=== PATIENT | female | born 1935 | race Two or more races ===

== ENCOUNTER 2016-10-16 17:06 | Emergency (ER) | payer OTHER, MEDICAID ==
[~2016-10-16] VITALS: Ht 170.2 cm; Wt 102.5 kg
[2016-10-16] MEDS ORDERED: SODIUM CHLORIDE 0.9% 1,000 ML IVB ONE (23:09)
[2016-10-16] MEDS ORDERED: HYDROmorphone HCL 2 MG/ML VL IV ONE (23:15)
[2016-10-16] MEDS ORDERED: ONDANSETRON HCL 4 MG/2 ML VIAL IV ONE (23:15)
[2016-10-16 23:59] VITALS: BP 159/77
[2016-10-17 00:02] LABS: Basophils # (auto) 0 uL; Basophils % (auto) 0.4 % (0.0-2.0); DEFINITIVE VIEW TRANSMISSION; Eosinophils # (auto) 0.2 uL; Eosinophils % (auto) 3.8 % (0.0-7.0); Hematocrit 30.2 % (36.0-46.0); Hemoglobin 10.1 g/dL (12.2-16.2); Lymphocytes # (auto) 0.9 uL; Lymphocytes % (auto) 20.1 % (10.0-50.0); Mean Corpuscular Hemoglobin 31.2 pg (28.0-32.0); Mean Corpuscular Hgb Conc. 33.6 g/dL (32.0-36.0); Mean Corpuscular Volume 92.8 fL (80.0-100.0); Mean Platelet Volume 7.7 fL (7.4-10.4); Monocytes # (auto) 0.5 uL; Monocytes % (auto) 10.7 % (0.0-12.0); Platelet Count (auto) 346 10^3/uL (140-450); SUSPECT VIEW TRANSMISSION; White Blood Cell 4.6 10^3/uL (4.4-10.8)
[2016-10-17 00:16] LABS: Red Cell Distribution Width 23.7 % (11.6-16.0)
[2016-10-17 00:23] LABS: Albumin 3.4 g/dL (3.4-5.0); BUN/Creatinine Ratio 13.2; Calcium 8.5 mg/dL (8.5-10.1); Potassium 3.9 mmol/L (3.5-5.1)
[2016-10-17 00:24] LABS: INR 0.92 (0.9-1.15); Partial Thromboplastin Time 26.4 sec (22.64-33.71); Prothrombin Time 9.9 sec (9.37-12.3)
[2016-10-17 00:26] LABS: Bilirubin, Total 0.4 mg/dL (0.2-1.0)
[2016-10-17 00:45] LABS: Anisocytosis Moderate; Ovalocytes FEW; Platelet Estimate Adequate; Polychromasia Slight; Stomatocytes Few
[2016-10-17 00:57] LABS: Urine RBC None Seen /hpf (0 - 4)
[2016-10-17 01:04] LABS: Urine Bilirubin Negative (Negative); Urine Blood Negative /uL (Negative); Urine Color Yellow (Yellow); Urine Glucose Normal (Normal); Urine Ketone Negative (Negative); Urine Nitrite Negative (Negative); Urine Squamous Epithelial Cell FEW /hpf (<5); Urine Urobilinogen Normal (Negative)
== END 2016-10-17 01:51 | disposition home or self-care (01) ==
LOC: ER 17:25
DX: I89.0 Lymphedema, not elsewhere classified (principal); Z85.3 Personal history of malignant neoplasm of breast
CPT/HCPCS: 36415; 74176; 80053; 81001; 82150; 83690; 85025; 85610; 85730; 93971

== ENCOUNTER 2016-11-11 19:52 | Emergency (ER) | payer OTHER, MEDICAID ==
[2016-11-11 20:45] LABS: Basophils # (auto) 0 uL; Basophils % (auto) 0.4 % (0.0-2.0); DEFINITIVE VIEW TRANSMISSION; Eosinophils # (auto) 0.5 uL; Eosinophils % (auto) 6.1 % (0.0-7.0); Hematocrit 35.9 % (36.0-46.0); Hemoglobin 11.8 g/dL (12.2-16.2); Lymphocytes # (auto) 1.6 uL; Lymphocytes % (auto) 20.6 % (10.0-50.0); Mean Corpuscular Hemoglobin 30.3 pg (28.0-32.0); Mean Corpuscular Hgb Conc. 32.9 g/dL (32.0-36.0); Mean Platelet Volume 7.7 fL (7.4-10.4); Monocytes # (auto) 0.5 uL; Monocytes % (auto) 6.1 % (0.0-12.0); Neutrophils # (auto) 5.1 uL; Neutrophils % (auto) 66.8 % (37.0-80.0); Platelet Count (auto) 338 10^3/uL (140-450); Red Cell Distribution Width 19.5 % (11.6-16.0); White Blood Cell 7.6 10^3/uL (4.4-10.8)
[2016-11-11 21:00] LABS: Prothrombin Time 9.5 sec (9.37-12.3)
[2016-11-11 21:06] LABS: Albumin 3.8 g/dL (3.4-5.0); BUN/Creatinine Ratio 20.3; Bilirubin, Total 0.4 mg/dL (0.2-1.0); Calcium 9.3 mg/dL (8.5-10.1); Potassium 3.8 mmol/L (3.5-5.1); Total Protein 7.8 g/dL (6.4-8.2)
[2016-11-11 21:11] LABS: INR 0.87 (0.9-1.15)
[2016-11-11 21:41] LABS: Anisocytosis Moderate; Ovalocytes FEW; Platelet Estimate Adequate
[2016-11-12] MEDS ORDERED: cloNIDine HCL 0.1 MG TAB PO ONE (07:45)
[2016-11-12] MEDS ORDERED: FUROSEMIDE 40 MG/4 ML VIAL IV ONE (07:45)
[2016-11-12 12:09] VITALS: BP 156/77
== END 2016-11-12 14:06 | disposition home or self-care (01) ==
LOC: ER 19:52
DX: I89.0 Lymphedema, not elsewhere classified (principal); I10 Essential (primary) hypertension
CPT/HCPCS: 36415; 80053; 85025; 85610; 93970; 96374; 99285; J1940